=== PATIENT | female | born 1990 | race Caucasian/White ===

== ENCOUNTER 2017-06-24 01:41 | Emergency (ER) | payer OTHER ==
[~2017-06-24 01:41] MED LIST: FLOM5CAP PO; PERCOCET PO
[2017-06-24] MEDS ORDERED: SERT25TA PO (01:53)
[2017-06-24] MEDS ORDERED: NS 1,000 ML IV ONE (04:15)
[2017-06-24 04:22] LABS: BASO % 0.6 % (0.0-1.0); EOS # 0.5 K/mm3 (0.0-0.50); EOS % 6.6 % (0.0-3.0); LARGE UNSTAINED CELL # 0.1 K/mm3 (0.0-0.4); LARGE UNSTAINED CELL % 1.6 % (0.0-4.0); LYMPH # 2.7 K/mm3 (1.5-6.5); LYMPH % 35.1 % (24.0-44.0); MEAN CORPUSCULAR HEMOGLOBIN 30.3 pg (27.0-33.0); MEAN CORPUSCULAR HGB CONC 34.5 g/dl (32.0-36.5); MEAN CORPUSCULAR VOLUME 87.7 fl (80.0-96.0); MONO # 0.5 K/mm3 (0.0-0.8); MONO % 5.9 % (0.0-5.0); NEUTROPHILS # 3.9 K/mm3 (1.8-7.7); NEUTROPHILS % 50.1 % (36.0-66.0); PLATELET COUNT, AUTOMATED 285 k/mm3 (150-450); RED CELL DISTRIBUTION WIDTH 12.6 % (11.5-14.5); WHITE BLOOD COUNT 7.7 K/mm3 (4.0-10.0)
[2017-06-24 04:44] LABS: CONTROL LINE HCG INT CTR LINE PRESENT
[2017-06-24 04:46] LABS: INR 0.99
[2017-06-24 04:51] LABS: ALBUMIN 3.6 GM/DL (3.2-5.2); ALBUMIN/GLOBULIN RATIO 0.86 (1.00-1.93); ALKALINE PHOSPHATASE 83 U/L (45-117); ALT/SGPT 21 U/L (12-78); ANION GAP 7 MEQ/L (8-16); AST/SGOT 13 U/L (15-37); BILIRUBIN,DIRECT < 0.1 MG/DL (0.0-0.2); BILIRUBIN,TOTAL 0.4 MG/DL (0.2-1.0); BLOOD UREA NITROGEN 17 MG/DL (7-18); CALCIUM LEVEL 8.5 MG/DL (8.5-10.1); CARBON DIOXIDE LEVEL 31 MEQ/L (21-32); CHLORIDE LEVEL 104 MEQ/L (98-107); CREATININE FOR GFR 0.86 MG/DL (0.55-1.02); GLOMERULAR FILTRATION RATE > 60.0 (>60); GLUCOSE, FASTING 112 MG/DL (70-105); POTASSIUM SERUM 3.4 MEQ/L (3.5-5.1); SODIUM LEVEL 142 MEQ/L (136-145); TOTAL PROTEIN 7.8 GM/DL (6.4-8.2)
--- NOTE | 2017-06-24 05:50 | REPUSA ---
CLINICAL HISTORY: Vaginal bleeding. TECHNIQUE: Realtime sonographic images were obtained in multiple projections via TV approach. COMMENTS: The uterus is retroflexed measuring 7.7x4.8x5.4 cm. There is a section scar of the lower uterine segment. The endometrial echo pattern is within normal limits measuring 10.1 mm. There is no evidence of free fluid within the pelvic cul-de-sac. The right ovary measures 3.2x2.5x2.5 cm and the left ovary measures 2.6x1.9x3.6 cm. Both ovaries are free of solid or cystic mass. The bladder measures 3.8x2.9x5.1 cm. There is no evidence for abnormal vascularity. IMPRESSION: Normal study. Thank you for your kind referral of this patient.
--- NOTE | 2017-06-24 06:00 | REPUSA ---
CLINICAL HISTORY: Abdominal pain. TECHNIQUE: Multiple axial, sagittal and coronal CT images were obtained through the abdomen and pelvi s without administration of oral or IV contrast material. COMMENTS: The liver is of uniform attenuation without mass or defect. There is no intra or extrahepatic biliary ductal dilatation. The spleen is normal. The gallbladder is within normal limits. The pancreas is of normal contour and attenuation characteristics. There is no evidence of adrenal mass. Bilateral nonobstructing renal stones with the largest measuring 4 mm. Mild bilateral fullness of the left collecting system. Left urothelial thickening. The kidneys are normal in size, shape and configuration. No ureteral calculi are identified. There is no right hydroureter or hydronephrosis. There is no evidence for appendicitis. There is no bowel wall thickening. No evidence for small or la rge bowel obstruction. There is no evidence of abdominal ascites or lymphadenopathy. There is no evidence of intrinsic or extrinsic bladder mass. There is no pelvic ascites or lymphadeno irvin. Images of the lung bases show no evidence of pleural or parenchymal mass. There are no pleural effusi ons. The bony structures are free of lytic or blastic lesions. IMPRESSION: Mild fullness of the left collecting system. Recent passage of a calculus versus an ascending urinary tract infection. Mild diffuse thickening of the bladder. Bilateral nephrolithiasis. Thank you for your kind referral of this patient.
[2017-06-24 07:23] LABS: MEAN CORPUSCULAR HEMOGLOBIN 29.8 pg (27.0-33.0); MEAN CORPUSCULAR HGB CONC 34.3 g/dl (32.0-36.5); RED CELL DISTRIBUTION WIDTH 12.6 % (11.5-14.5); WHITE BLOOD COUNT 8.2 K/mm3 (4.0-10.0)
[2017-06-24 08:47] VITALS: BP 103/67
== END 2017-06-24 09:29 | disposition home or self-care (01) ==
LOC: M ED 01:41
DX: N93.8 Other specified abnormal uterine and vaginal bleeding (principal); F17.210 Nicotine dependence, cigarettes, uncomplicated; Z79.899 Other long term (current) drug therapy; Z88.8 Allergy status to other drugs, medicaments and biological substances; Z87.442 Personal history of urinary calculi

== ENCOUNTER 2017-06-27 17:05 | Emergency (ER) | payer OTHER ==
[~2017-06-27] VITALS: Ht 144.8 cm; Wt 69.2 kg
[2017-06-27 17:05] VITALS: BP 106/61
[~2017-06-27 17:05] MED LIST changes: +SERT25TA PO
== END 2017-06-27 18:27 | disposition left against medical advice (07) ==
LOC: M ED 17:05
DX: J02.9 Acute pharyngitis, unspecified (principal); Z53.21 Procedure and treatment not carried out due to patient leaving prior to being seen by health care provider

== ENCOUNTER 2017-06-30 15:16 | Emergency (ER) | payer OTHER ==
[~2017-06-30] VITALS: Ht 144.8 cm; Wt 63.6 kg
[2017-06-30 15:17] VITALS: BP 112/63
== END 2017-06-30 16:11 | disposition home or self-care (01) ==
LOC: M ED 15:16
DX: J02.9 Acute pharyngitis, unspecified (principal); G47.33 Obstructive sleep apnea (adult) (pediatric); E28.2 Polycystic ovarian syndrome; F41.9 Anxiety disorder, unspecified; F17.210 Nicotine dependence, cigarettes, uncomplicated; Z87.442 Personal history of urinary calculi; Z88.8 Allergy status to other drugs, medicaments and biological substances

== ENCOUNTER 2017-07-14 04:42 | Emergency (ER) | payer OTHER ==
[~2017-07-14] VITALS: Ht 144.8 cm; Wt 68.2 kg
[2017-07-14] MEDS ORDERED: CLINDAMYCIN 150 MG CAP PO ONE (06:45)
[2017-07-14] MEDS ORDERED: NAPROXEN 250 MG TAB PO ONE (06:45)
[2017-07-14] MEDS ORDERED: CLIN150C14 PO (06:46)
[2017-07-14] MEDS ORDERED: MOBI4TAB PO (06:46)
[2017-07-14 06:55] VITALS: BP 98/63
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
== END 2017-07-14 07:05 | disposition home or self-care (01) ==
LOC: M ED 04:42
DX: L08.89 Other specified local infections of the skin and subcutaneous tissue (principal); S43.401A Unspecified sprain of right shoulder joint, initial encounter; S43.101A Unspecified dislocation of right acromioclavicular joint, initial encounter; X50.9XXA Other and unspecified overexertion or strenuous movements or postures, initial encounter; Y92.59 Other trade areas as the place of occurrence of the external cause; Y93.89 Activity, other specified; Y99.8 Other external cause status; F17.210 Nicotine dependence, cigarettes, uncomplicated; Z88.8 Allergy status to other drugs, medicaments and biological substances

== ENCOUNTER 2017-08-09 13:30 | Emergency (ER) | payer OTHER ==
[~2017-08-09] VITALS: Ht 144.8 cm; Wt 68.2 kg
[~2017-08-09 13:30] MED LIST changes: +CLIN150C14 PO; +MOBI4TAB PO
[2017-08-09] MEDS ORDERED: TRAM50TA2 PO (14:43)
[2017-08-09 14:50] VITALS: BP 102/68
== END 2017-08-09 14:59 | disposition home or self-care (01) ==
LOC: M ED 13:30
DX: M19.011 Primary osteoarthritis, right shoulder (principal); F17.210 Nicotine dependence, cigarettes, uncomplicated; E28.2 Polycystic ovarian syndrome; Z88.8 Allergy status to other drugs, medicaments and biological substances; Z98.890 Other specified postprocedural states

== ENCOUNTER 2017-08-21 21:45 | Emergency (ER) | payer OTHER ==
[~2017-08-21] VITALS: Ht 144.8 cm; Wt 70.5 kg
[~2017-08-21 21:45] MED LIST changes: +TRAM50TA2 PO
[2017-08-21 21:46] VITALS: BP 128/77
== END 2017-08-22 00:09 | disposition left against medical advice (07) ==
LOC: M ED 21:45
DX: Z53.21 Procedure and treatment not carried out due to patient leaving prior to being seen by health care provider (principal)

== ENCOUNTER 2017-08-27 15:15 | Inpatient (IN) | payer OTHER ==
[~2017-08-27] VITALS: Ht 144.8 cm; Wt 70.0 kg
[2017-08-27 16:49] LABS: MEAN CORPUSCULAR HEMOGLOBIN 29.7 pg (27.0-33.0); MEAN CORPUSCULAR HGB CONC 33.2 g/dl (32.0-36.5); MEAN CORPUSCULAR VOLUME 89.4 fl (80.0-96.0); PLATELET COUNT, AUTOMATED 277 10^3/uL (150-450); RED CELL DISTRIBUTION WIDTH 12.4 % (11.5-14.5); WHITE BLOOD COUNT 6.5 10^3/uL (4.0-10.0)
[2017-08-27 17:26] LABS: ALBUMIN 3.5 GM/DL (3.2-5.2); ALKALINE PHOSPHATASE 76 U/L (45-117); ALT/SGPT 20 U/L (12-78); ANION GAP 6 MEQ/L (8-16); AST/SGOT 24 U/L (7-37); BILIRUBIN,DIRECT < 0.1 MG/DL (0.0-0.2); BILIRUBIN,TOTAL 0.2 MG/DL (0.2-1.0); BLOOD UREA NITROGEN 14 MG/DL (7-18); CALCIUM LEVEL 8.4 MG/DL (8.5-10.1); CARBON DIOXIDE LEVEL 29 MEQ/L (21-32); CHLORIDE LEVEL 107 MEQ/L (98-107); CREATININE FOR GFR 0.75 MG/DL (0.55-1.02); GLOMERULAR FILTRATION RATE > 60.0 (>60); GLUCOSE, FASTING 103 MG/DL (70-105); SODIUM LEVEL 142 MEQ/L (136-145)
[2017-08-27 18:13] LABS: METHADONE URINE NEGATIVE (NEGATIVE)
[2017-08-27] MEDS ORDERED: HAIR1CHW PO (19:19)
[2017-08-27] MEDS ORDERED: VITMTA PO (19:19)
[2017-08-27] MEDS ORDERED: TYLE500T78 PO (19:19)
[2017-08-27 23:19] VITALS: BP 112/57
[2017-08-28] MEDS ORDERED: MAALOX 30 ML SUSP *UDC PO PRN
[2017-08-28] MEDS ORDERED: MOM 30ML SUSPENSION UDC PO PRN
[2017-08-28] MEDS ORDERED: LORazepam 1 MG TAB PO PRN
[2017-08-28] MEDS ORDERED: traZODone 50 MG TAB PO PRN
[2017-08-28] MEDS ORDERED: ACETAMINOPHEN TAB 650MG DOSE (2X325MG) PO PRN
[2017-08-28 06:31] VITALS: BP 91/54
[2017-08-28] MEDS: NICOTINE 21MG/24HR 1 EA TRANSDERMAL TD SCH (09:59)
--- NOTE | 2017-08-28 10:14 | HPEPDOC ---
[facility] Medical History & Physical Date of Admission Aug 27, 2017 History and Physical PCP: Jordan roy ATTENDING: Dr. Kelvin Enciso HPI: 26 yo F admitted to [facility] for unspecified depressive disorder, being medically examined today. No acute medical complaints today. Patient states she is following with her PCP for chronic right shoulder pain. She states she was found to have shoulder separation. She denies any prior injury. She states she tried physical therapy from 11/16-02/13 which was ineffective. Her primary care provider has requested MRI of the right shoulder which is pending at this time. Orthopedic referral pending MRI results. Denies any fevers, chills, weakness, fatigue, ENGLISH, CP, SOB, cough, palpitations, abdominal pain, N/V/D or changes in bowel or bladder habits. PMHx/PSHx: Depression Anxiety History of kidney stones/ureteral stent 6/robotic surgery for removal of damage section of urethra/ESWL left 07/15. Follows with Dr. Jeronimo, [facility] urology. Breast reduction PCOS Obesity. BMI 33.4 Left foot surgery as child Chronic right shoulder pain/shoulder separation. Following with PCP. PT 11/16- ineffective. MRI right shoulder pending. RANJEET/CPAP SOCHX: Resides in: [facility] Marital Status: Kids: 2 Employment: Unemployed Tobacco use: Daily ETOH: Occasional Illicit Drugs: Denies IV Drug Use: Denies Tattoos done unprofessionally: Denies FAMHX: Mother: , MVA Father: Alive, well Siblings: Alive, well Children: Alive, well Unexpected deaths due to medical reasons: None. ROS: As noted in HPI, otherwise 11pt ROS of systems reviewed and remarkable only for LMP 07/19/17. History of irregular cycles. PE: GEN: 26 yo F, appears stated age. Well-nourished, well developed. No acute distress. Alert and oriented x 3. Pleasant, interactive. HEENT: Normocephalic, atraumatic. Pupils are equal, round, and reactive to light. Extraocular movements are intact. No nystagmus appreciated. Sclera are nonicteric. Conjunctiva without injection. Nose midline. Nasal turbinates without bogginess. EACs both patent BL. TMs both visualized and mercado with good cone of light, no bulging or erythema. No facial asymmetry. Moist mucous membranes. Dentition fair. Pharynx pink and moist, no cobblestoning. Neck supple , trachea midline. No lymphadenopathy or thyromegaly appreciated. CHEST: Regular rate and rhythm, +S1, +S2 LUNGS: Clear to auscultation bilaterally. No wheezes, rales, or rhonchi. Breathing appears symmetric and easy. Patient is speaking in full sentences. No accessory muscle use. ABD: Round, soft, non-tender, non-distended. +Bowel sounds throughout. No rebound or guarding. No costovertebral angle tenderness. EXT: Pulses 2+ bilaterally dorsalis pedis and radial. No lower extremity edema appreciated. SKIN: Grenelefe, dry, warm. Capillary refill <2sec. No rashes. NEURO: Alert and oriented x 3. Cranial nerves III-XII are intact. is noted to have limited range of motion of the right shoulder. EKG: Pending A&P: 26 yo F admitted to [facility] for unspecified depressive disorder, 1. Psych. Plan per Psychiatry. Obtain baseline EKG to assure the safety of psychiatric medications as they can prolong the QT interval. 2. Nicotine dependence. Patch available. 3. RANJEET. Continue CPAP from home. 4. Follow up with PCP on discharge. 5. History of kidney stones. Continue outpatient follow-up with urology. 6. Chronic right shoulder pain. Continue outpatient follow-up with PCP. MRI of right shoulder pending as outpatient. Consider orthopedic referral as outpatient. Continue Tylenol 650 mg every 6 hours as needed. Patient feels her pain is reasonably controlled at this time. 7. Add hCG to labs. 8. Staff member Kathleen OLEARY present throughout exam. Vital Signs Vital Signs Date Time Temp Pulse Resp B/P (MAP) Pulse Ox O2 Delivery O2 Flow Rate FiO2 08/28/17 06:31 97.0 61 16 91/54 (66) 08/27/17 23:19 Room Air 08/27/17 22:08 98 Laboratory Data Labs 24H Laboratory Tests 2 08/27/17 16:33: Nucleated Red Blood Cells % (auto) 0.0, Anion Gap 6L, Glomerular Filtration Rate > 60.0, Calcium Level 8.4L, Aspartate Amino Transf (AST/SGOT) 24, Alanine Aminotransferase (ALT/SGPT) 20, Alkaline Phosphatase 76, Total Bilirubin 0.2, Direct Bilirubin < 0.1, Total Protein 7.0, Albumin 3.5, Albumin/Globulin Ratio 1.00, Thyroid Stimulating Hormone (TSH) 1.010, Salicylates Level < 1.7L, Acetaminophen Level < 2.0L, Ethyl Alcohol Level 0.007 08/27/17 17:37: Urine Amphetamines Screen NEGATIVE, Urine Benzodiazepines Screen NEGATIVE, Urine Opiates Screen NEGATIVE, Urine Methadone Screen NEGATIVE, Urine Barbiturates Screen NEGATIVE, Urine Phencyclidine Screen NEGATIVE, Urine Cocaine Metabolite Screen NEGATIVE, Urine Cannabinoids Screen NEGATIVE CBC/BMP Laboratory Tests 08/27/17 16:33 Red Blood Count 4.07, Mean Corpuscular Volume 89.4, Mean Corpuscular Hemoglobin 29.7, Mean Corpuscular Hemoglobin Concent 33.2, Red Cell Distribution Width 12.4 Home Medications Scheduled (Hair Skin & Nails ... 1250-7.5-7.5 Mcg-mg-Unt) 1 Chw Chw, 3 CHW PO QHS Multivitamins *SMC STOCKED* (Thera M Plus *SMC STOCKED*) 1 Tab Tab, 1 TAB PO QHS Scheduled PRN Acetaminophen (Tylenol Extra Strength) 500 Mg Tab, 1,000 MG PO QID PRN for PAIN Allergies Coded Allergies: Lidocaine (Verified Allergy, Unknown, 07/14/17) Joanie Blank Aug 28, 2017 10:14
[2017-08-28 10:43] LABS: CONTROL LINE HCG INT CTR LINE PRESENT
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
[2017-08-28] MEDS: CitaloPRAM (CeleXA) 20 MG TAB PO SCH (12:39)
[2017-08-28 12:45] VITALS: BP 129/67
[2017-08-28 15:45] VITALS: BP 90/51
[2017-08-28] MEDS: ONDANSETRON 4 MG TAB (S0181) PO PRN ×2 (15:53→21:44)
--- NOTE | 2017-08-28 17:36 | ECGEPIP ---
Stationary ECG Study [facility] Test Date: 2017-08-28 Pat Name: YAHIR MARCOS Department: Room: [place] [address] Gender: F [employer] Field Technician: : 1990 Requested By: Joanie Blank Order Number: [id number] Reading MD: Betsey Brewer Measurements Intervals [place] Rate: 83 P: 45 NE: 167 QRS: 47 QRSD: 81 T: 23 QT: 359 QTc: 424 Interpretive Statements SINUS RHYTHM NSSTTW NO PRIOR Electronically Signed On 08-28-2017 17:35:51 EST by Betsey Brewer
[2017-08-28 18:00] VITALS: BP 108/58
[2017-08-28 21:00] VITALS: BP 110/62
[2017-08-29 06:48] VITALS: BP 114/55
[2017-08-29] MEDS: ONDANSETRON 4 MG TAB (S0181) PO PRN ×2 (08:26→21:56)
[2017-08-29] MEDS: NICOTINE 21MG/24HR 1 EA TRANSDERMAL TD SCH (08:26)
[2017-08-29] MEDS: CitaloPRAM (CeleXA) 20 MG TAB PO SCH (08:26)
[2017-08-29 12:00] VITALS: BP 109/55
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
[2017-08-29] MEDS ORDERED: traZODone 25MG PER 1/2 TABLET PO PRN (17:30)
[2017-08-29 22:12] VITALS: BP 116/59
[2017-08-30 06:18] VITALS: BP 88/50
[2017-08-30] MEDS: CitaloPRAM (CeleXA) 20 MG TAB PO SCH (08:15)
[2017-08-30] MEDS: NICOTINE 21MG/24HR 1 EA TRANSDERMAL TD SCH (08:17)
[2017-08-30] MEDS ORDERED: ONDA4TAB5 PO (13:54)
[2017-08-30] MEDS ORDERED: CELE20TA PO (13:54)
[2017-08-30] MEDS ORDERED: TRAZ25TA PO (13:54)
[2017-08-30] MEDS ORDERED: NICO21PAT TD (13:54)
[2017-08-30] MEDS ORDERED: ARIP10TAB PO (13:57)
[2017-08-30] MEDS ORDERED: ARIPiprazole 10 MG TAB PO SCH (21:00)
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
== END 2017-08-30 17:15 | disposition home or self-care (01) | DRG 885 ==
LOC: M ED 15:15 → M ED INP 20:47 → M PSY 22:40
PROVIDERS: ADMIT Psychiatry & Neurology Psychiatry; ATTEND Psychiatry & Neurology Psychiatry
DX: F31.81 Bipolar II disorder (principal); F17.210 Nicotine dependence, cigarettes, uncomplicated; G47.33 Obstructive sleep apnea (adult) (pediatric); F43.10 Post-traumatic stress disorder, unspecified; M25.511 Pain in right shoulder; E66.9 Obesity, unspecified; Z68.33 Body mass index [BMI] 33.0-33.9, adult; Z87.442 Personal history of urinary calculi; Z88.4 Allergy status to anesthetic agent; Z62.810 Personal history of physical and sexual abuse in childhood; Z63.0 Problems in relationship with spouse or partner

== ENCOUNTER 2017-10-17 07:55 | Day surgery (SDC) | payer OTHER ==
[2017-10-17] MEDS ORDERED: LR 1,000 ML IV ×2 (08:00→11:00)
[2017-10-17 08:17] LABS: CONTROL LINE UCG INT CTR LINE PRESENT; URINE PREG TEST NEGATIVE (NEGATIVE)
[2017-10-17 09:08] LABS: APPEARANCE, URINE CLOUDY (CLEAR); BACTERIA, URINE AUTO 1+ (NEGATIVE); BILIRUBIN, URINE AUTO NEGATIVE (NEGATIVE); BLOOD, URINE BLOOD NEGATIVE (NEGATIVE); COLOR, URINE YELLOW (YELLOW); GLUCOSE, URINE (UA) AUTO NEGATIVE (NEGATIVE); KETONE, URINE AUTO NEGATIVE (NEGATIVE); LEUKOCYTE ESTERASE, URINE AUTO TRACE (NEGATIVE); MUCUS, URINE SMALL (NEGATIVE); NITRITE, URINE AUTO NEGATIVE (NEGATIVE); PROTEIN, URINE AUTO NEGATIVE (NEGATIVE); RBC, URINE AUTO 5 /HPF (0-3); SPECIFIC GRAVITY URINE AUTO 1.019 (1.002-1.035); SQUAMOUS EPITHELIAL CELL UR AU 25 /HPF (0-6); UROBILINOGEN, URINE AUTO 0.2 mg/dL (0.0-2.0); WBC, URINE AUTO 3 /HPF (0-3)
[2017-10-17] MEDS ORDERED: dexameTHASONE 4 MG/ML 1ML VIAL (J1100) As Ordered (10:09)
[2017-10-17] MEDS ORDERED: ePHEDrine INJ 50 MG/ML VIAL As Ordered (10:09)
[2017-10-17] MEDS ORDERED: fentaNYL 250 MCG/5 ML INJECTION (J3010) As Ordered (10:09)
[2017-10-17] MEDS ORDERED: LIDOCAINE 2% INJ 100 MG/5 ML SDV (FOR ANES.) As Ordered (10:09)
[2017-10-17] MEDS ORDERED: MIDAZOLAM INJ 2 MG/2 ML VIAL (J2250) As Ordered (10:10)
[2017-10-17] MEDS ORDERED: ONDANSETRON 4MG/2ML VIAL (J2405) As Ordered (10:10)
[2017-10-17] MEDS ORDERED: PHENYLephrine HCL 500 MCG/5 ML (100MCG/ML) SYRINGE (J2370) As Ordered (10:10)
[2017-10-17] MEDS ORDERED: PROPOFOL 200 MG/20 ML VIAL As Ordered (10:10)
[2017-10-17] MEDS: CONRAY-60 60% 50ML VIAL (Q9961) As Ordered (10:25)
[2017-10-17] MEDS ORDERED: MEPERIDINE INJ 25 MG/ML VIAL (J2175) As Ordered (10:37)
[2017-10-17] MEDS ORDERED: fentaNYL 100 MCG/2 ML INJECTION (J3010) As Ordered (10:45)
[2017-10-17] MEDS: fentaNYL 100 MCG/2 ML INJECTION (J3010) IV ×4 (10:50→11:10)
[2017-10-17] MEDS ORDERED: MEPERIDINE INJ 25 MG/ML VIAL (J2175) IV (11:00)
[2017-10-17] MEDS ORDERED: PERCOCET 5MG/325MG TAB As Ordered (11:05)
[2017-10-17] MEDS: PERCOCET 5MG/325MG TAB PO ×2 (11:21→12:10)
[2017-10-17] MEDS ORDERED: PERCOCET 5MG/325MG TAB PO ×2 (11:30)
[2017-10-17] MEDS ORDERED: KETOROLAC 30 MG/ML VIAL (J1885) As Ordered (11:33)
[2017-10-17] MEDS: KETOROLAC 30 MG/ML VIAL (J1885) IV (11:44)
[2017-10-17] MEDS ORDERED: MORPHINE 4 MG/ML 1ML SYRINGE IV (11:45)
[2017-10-17] MEDS: ONDANSETRON 4MG/2ML VIAL (J2405) IV (12:00)
== END 2017-10-17 12:47 | disposition home or self-care (01) ==
LOC: M SDC 07:55
DX: N20.0 Calculus of kidney (principal); E28.2 Polycystic ovarian syndrome; G47.33 Obstructive sleep apnea (adult) (pediatric); G43.909 Migraine, unspecified, not intractable, without status migrainosus; R06.83 Snoring; Z88.4 Allergy status to anesthetic agent; Z79.899 Other long term (current) drug therapy; Z87.440 Personal history of urinary (tract) infections; Z72.0 Tobacco use
CPT/HCPCS: 52332

== ENCOUNTER 2017-10-21 20:03 | Emergency (ER) | payer OTHER ==
[2017-10-21] MEDS: LORazepam 1 MG TAB PO (20:53)
[2017-10-21] MEDS: PERCOCET 5MG/325MG TAB PO (20:53)
[2017-10-21 21:15] LABS: HEMATOCRIT 37.7 % (36.0-47.0); HEMOGLOBIN 12.4 g/dl (12.0-16.0); MEAN CORPUSCULAR HEMOGLOBIN 29.4 pg (27.0-33.0); MEAN CORPUSCULAR HGB CONC 32.9 g/dl (32.0-36.5); MEAN CORPUSCULAR VOLUME 89.3 fl (80.0-96.0); PLATELET COUNT, AUTOMATED 282 10^3/uL (150-450); RED BLOOD COUNT 4.22 10^6/uL (4.00-5.40); RED CELL DISTRIBUTION WIDTH 11.9 % (11.5-14.5); WHITE BLOOD COUNT 8.8 10^3/uL (4.0-10.0)
[2017-10-21 21:21] LABS: KETONE, URINE AUTO RFX NEGATIVE (NEGATIVE); MUCUS, URINE RFX SMALL (NEGATIVE); NITRITE, URINE AUTO RFX NEGATIVE (NEGATIVE); RBC, URINE AUTO RFX TNTC /HPF (0-3); SPECIFIC GRAVITY UR AUTO RFX 1.017 (1.002-1.035); SQUAM EPITHELIAL CELL UR AURFX 4 /HPF (0-6)
[2017-10-21 21:22] LABS: LEUKOCYTE ESTERASE UR AUTO RFX 2+ (NEGATIVE); WBC, URINE AUTO RFX 46 /HPF (0-3)
[2017-10-21 21:36] LABS: ANION GAP 1 MEQ/L (8-16); BLOOD UREA NITROGEN 16 MG/DL (7-18); CALCIUM LEVEL 9.1 MG/DL (8.5-10.1); CARBON DIOXIDE LEVEL 33 MEQ/L (21-32); CHLORIDE LEVEL 104 MEQ/L (98-107); GLOMERULAR FILTRATION RATE > 60.0 (>60); GLUCOSE, FASTING 89 MG/DL (70-100); SODIUM LEVEL 138 MEQ/L (136-145)
[2017-10-21] MEDS: CIPROFLOXACIN 500 MG TAB PO (22:33)
== END 2017-10-21 23:03 | disposition home or self-care (01) ==
LOC: M ED 20:03
DX: N10 Acute pyelonephritis (principal); F17.210 Nicotine dependence, cigarettes, uncomplicated; Z88.8 Allergy status to other drugs, medicaments and biological substances; Z87.442 Personal history of urinary calculi; Z96.0 Presence of urogenital implants
CPT/HCPCS: 74176